=== PATIENT | female | born 1965 | race Caucasian/White ===

== ENCOUNTER 2020-08-16 23:26 | Emergency (ER) | payer OTHER ==
[~2020-08-16] VITALS: Ht 170.2 cm; Wt 136.4 kg
[2020-08-16 23:31] VITALS: BP 171/74; Ht 170.2 cm; Wt 136.4 kg
[2020-08-16] MEDS ORDERED: CELEXA40 MG PO (23:33)
[2020-08-16] MEDS ORDERED: MUCINEX600 MG PO (23:34)
[2020-08-16] MEDS ORDERED: GLUCOPHAGE1000 MG PO (23:34)
[2020-08-16] MEDS ORDERED: SYNTHROID50 MCG PO (23:34)
[2020-08-16] MEDS ORDERED: AMITRIPTYLINE100 MG PO (23:35)
[2020-08-16] MEDS ORDERED: LIPITOR40 MG PO (23:35)
[2020-08-16] MEDS ORDERED: SYMBICORT 80-10.2 GM INH (23:35)
[2020-08-16] MEDS ORDERED: BENTYL 20 MG TA20 MG PO (23:36)
[2020-08-16] MEDS ORDERED: LISINOPRIL5 MG PO (23:36)
[2020-08-16] MEDS ORDERED: NASACORT10.8 ML NASAL (23:36)
[2020-08-16] MEDS ORDERED: LANTUS INS100 UNITS/ SC (23:37)
[2020-08-16] MEDS ORDERED: NOVOLOG100 UNIT/1 SC (23:37)
[2020-08-16] MEDS ORDERED: OMEPRAZOLE20 M1 PO (23:37)
[2020-08-16] MEDS ORDERED: TYLENOL W/CODEI1 TAB PO (23:38)
[2020-08-16] MEDS ORDERED: DOXYCYCLINE HY100 M2 PO (23:48)
[2020-08-17 00:19] LABS: BASOPHILS 0.4 % (0-2); CALC OSMOLALITY 270 mosm/kg (275-300); CALCIUM 9.3 mg/dL (8.5-10.1); CARBON DIOXIDE 31.6 mmol/L (21.0-32.0); CHLORIDE - SERUM 96 mmol/L (98-107); EOSINOPHILS 0.9 % (0-7); GLUCOSE 148 mg/dL (74-106); HEMATOCRIT 37.7 % (36.0-48.0); IMMATURE GRANULOCYTES 0.3 % (0-5); LYMPHOCYTE ABS# 1.28 10x3/uL (1.18-3.74); MCH 25.5 pg (26.0-34.0); MCHC 31.8 g/dL (31.0-37.0); MEAN PLATELET VOLUME 9.1 fL (7.4-10.4); MONOCYTES 6.5 % (2-11); NEUTROPHIL ABS# 4.92 10x3/uL (1.56-6.13); NEUTROPHILS 72.9 % (40-80); PLATELET COUNT 265 10x3/uL (130-400); POTASSIUM - SERUM 3.7 mmol/L (3.5-5.1); RBC 4.71 10x6/uL (4.00-5.40); SODIUM 134 mmol/L (136-145); UREA NITROGEN 13 mg/dL (7-18); WBC 6.8 10x3/uL (4.8-10.8); eGFR NON AFRICAN AMERICAN 61 mL/min (90-120)
[2020-08-17 00:34] LABS: ALBUMIN 3.9 g/dL (3.4-5.0); ALKALINE PHOSPHATASE 58 U/L (30-120); ALT (SGPT) 60 U/L (10-68); C-REACTIVE PROTEIN 2.8 mg/dL (0.0-0.9); MAGNESIUM - SERUM 2.1 mg/dL (1.8-2.4); PRO BNP 339 pg/mL (0-125); PROTEIN - SERUM 7.2 g/dL (6.4-8.2)
[2020-08-17 00:35] LABS: TROPONIN-I < 0.017 ng/mL (0.000-0.060)
== END 2020-08-17 01:02 | disposition home or self-care (01) ==
LOC: D.ER 23:26
PROVIDERS: Family Medicine
DX: J44.9 Chronic obstructive pulmonary disease, unspecified (principal); R05 Cough